=== PATIENT | male | born 1990 | race Caucasian/White ===

== ENCOUNTER 2022-04-15 15:29 | Emergency (ER) | payer OTHER ==
[2022-04-15] MEDS ORDERED: Ketorolac Tromethamine 30 MG/ML VIAL ONE (16:20)
[2022-04-15] MEDS ORDERED: Acetaminophen 500 MG TAB ONE ×2 (17:40→17:43)
[2022-04-17] MEDS ORDERED: Acetaminophen 500 MG TAB ONE (07:51)
== END 2022-04-15 18:47 | disposition home or self-care (01) ==
LOC: CSHERS 15:29 → EEVIPCON 15:29 → CSHERS 18:47
DX: S22.019A Unspecified fracture of first thoracic vertebra, initial encounter for closed fracture (principal); S50.12XA Contusion of left forearm, initial encounter; S00.12XA Contusion of left eyelid and periocular area, initial encounter; Y04.0XXA Assault by unarmed brawl or fight, initial encounter; K21.9 Gastro-esophageal reflux disease without esophagitis
CPT/HCPCS: 36416; 70450; 70486; 71250; 72125; 96372; J1885